=== PATIENT | male | born 1965 | race Caucasian/White ===

== ENCOUNTER 2021-03-02 17:15 | Emergency (ER) | payer BC ==
[2021-03-02] MEDS ORDERED: Sodium Chloride 0.9% 1,000 ML IV ONE ×2 (17:23→18:00)
--- NOTE | 2021-03-02 17:28 | EDM.PDOC ---
<AllibreannFiliberto landis Jason - Last Filed: 03/02/21 17:29> ED HPI GENERAL MEDICAL PROBLEM - General Stated Complaint: PASSED OUT, DISORIENTED, CHEST COLD Time Seen by Provider: 03/02/21 17:18 Source of Information: Reports: Patient History Limitations: Reports: No Limitations - History of Present Illness INITIAL COMMENTS - FREE TEXT/NARRATIVE: 56-year-old male past medical history CAD presents for episode of dizziness and syncope. Patient notes that he has been battling a "chest cold" for about 5 days. Notes nonproductive cough, shortness of breath, chest tightness. Denies fevers. Does note generalized weakness. Today was working with his sons when he began to feel very dizzy and lightheaded. He sat down and had an episode of syncope lasting a few seconds. He currently feels some dizziness but is feeling much better than when the event happened. - Related Data Allergies Allergy/AdvReac Type Severity Reaction Status Date / Time No Known Allergies Allergy Verified 03/02/21 17:55 Home Meds: Home Meds Ezetimibe [Zetia] 1 dose PO DAILY 03/02/21 [History] Lisinopril/Hydrochlorothiazide [Lisinopril-HCTZ 10-12.5 MG] 1 dose PO DAILY 03/02/21 [History] Metoprolol Succinate [Toprol XL] 1 dose PO DAILY 03/02/21 [History] Pantoprazole Sodium [Protonix] 1 dose PO DAILY 03/02/21 [History] Rosuvastatin Calcium [Crestor] 1 dose PO DAILY 03/02/21 [History] ED ROS GENERAL - Review of Systems Review Of Systems: Comprehensive ROS is negative, except as noted in HPI. ED EXAM, GENERAL - Physical Exam Exam: See Below Exam Limited By: No Limitations General Appearance: Alert, WD/WN, No Apparent Distress Eye Exam: Bilateral Eye: EOMI, PERRL Ears: Hearing Grossly Normal Throat/Mouth: Normal Voice, No Airway Compromise Head: Atraumatic, Normocephalic Neck: Normal Inspection Respiratory/Chest: No Respiratory Distress, Lungs Clear, Normal Breath Sounds, No Accessory Muscle Use Cardiovascular: Normal Peripheral Pulses, No Edema, Tachycardia GI/Abdominal: Soft, Non-Tender Extremities: Normal Inspection Neurological: Alert, Oriented, CN II-XII Intact, Normal Cognition, Normal Gait, No Motor/Sensory Deficits Psychiatric: Normal Affect, Normal Mood Skin Exam: Warm, Dry, Intact, Normal Color #1 Interpretation EKG Date: 03/02/21 Time: 17:20 Rhythm: NSR Rate (Beats/Min): 119 [place]: Normal P-Wave: Present QRS: Normal ST-T: Normal QT: Normal OH/PQ Interval: 116 Comparison: NA - No Prior EKG EKG Interpretation Comments: unremarkable EKG Course - Re-Assessments/Exams Free Text/Narrative Re-Assessment/Exam: 03/02/21 17:29 Patient presents status post syncopal episode preceded by lightheadedness and dizziness. His neurologic exam is unremarkable. Will get head CT and CTA imaging. Will get Covid test and basic labs. Departure - Departure Disposition: Home, Self-Care 01 Clinical Impression: Dehydration, COVID-19 virus infection Syncope Qualifiers: Syncope type: unspecified Qualified Code(s): R55 - Syncope and collapse - Discharge Information Referrals: PCP,None [Primary Care Provider] - Additional Instructions: The following information is given to patients seen in the emergency department who are being discharged to home. This information is to outline your options for follow-up care. We provide all patients seen in our emergency department with a follow-up referral. The need for follow-up, as well as the timing and circumstances, are variable depending upon the specifics of your emergency department visit. If you don't have a primary care physician on staff, we will provide you with a referral. We always advise you to contact your personal physician following an emergency department visit to inform them of the circumstance of the visit and for follow-up with them and/or the need for any referrals to a consulting specialist. The emergency department will also refer you to a specialist when appropriate. This referral assures that you have the opportunity for follow-up care with a specialist. All of these measure are taken in an effort to provide you with optimal care, which includes your follow-up. Under all circumstances we always encourage you to contact your private physician who remains a resource for coordinating your care. When calling for follow-up care, please make the office aware that this follow-up is from your recent emergency room visit. If for any reason you are refused follow-up, please contact the [facility] Emergency Department at and asked to speak to the emergency department charge nurse. [facility] Primary Care / Cardiology, Dr. Souza [address] [place] [address] [facility] [address] [place] [address] 1. You have been given an outpatient prescription for a Holter monitor. The Holter monitor results will be sent to the lube technician, Dr. Souza for follow-up of the Holter monitor and symptoms from today as discussed. 2. Encourage small but frequent sips of fluid to prevent dehydration. 3. Your COVID-19 screening is positive. That means you do have the coronavirus and are considered contagious. Your vital signs and oxygen saturation are well enough that you were able to monitor your symptoms at home. Continue to monitor for trouble breathing, new confusion or inability to arouse, bluish lips or face or any of the other symptoms we discussed -if this occurs please return to the emergency room.Continue to monitor your health at home for worsening symptoms so that you can be taken care of and treated quickly if needed. 4. Please self quarantine until 10 days have passed since your symptoms began AND you are fever free (<100.4 degrees fahrenheit) for 24 hours without the use of fever-reducing medications AND symptoms are improving. You should restrict activities outside of your home, except for getting medical care. Do not go to work, school, or public areas. Avoid using public transportation, ride-sharing, or taxis. Inform any persons that you have been in contact with since you started becoming symptomatic that you have tested positive; they should be made aware and take the appropriate steps as needed. 5. You may alternate Tylenol and ibuprofen as needed for pain and fever management. 6. The [facility] department will be calling you and following up with you. The [place] COVID 19 Hotline phone number , They are open Tuesday - Tuesday 7am - 7pm. Follow up with your primary care provider for re-evaluation and re-testing after quarantine and discuss when you should be seen. 7. For more specific guidelines regarding isolation/quarantine please visit this website. https://www.health.[place].gov/sites/www/files/documents/Files/ZACH/coronavirus/Fac tsheet_for_People_With_COVID-19.pdf <Alisha Guzman - Last Filed: 03/02/21 20:54> ED HPI GENERAL MEDICAL PROBLEM - History of Present Illness INITIAL COMMENTS - FREE TEXT/NARRATIVE: I have received sign out from provider at 19:00 pending COVID19 swab, repeat lactic acid following fluid bolus secondary to dehydration. I have personally seen and evaluated the patient and agree with the above H&P. Upon my reexamination of patient, his tachycardia has resolved and is now 70 bpm, and patient is otherwise vitally stable and states he feels much improved following the fluid bolus. Repeat lactate shows improvement from 2.7 and is now within normal limits at 1.4. Patient's COVID-19 is positive. Discussed with patient given the concern for initial tachycardia, and syncopal event, the concern for possible pulmonary embolism in the setting of COVID-19. However, patient has received a contrast bolus upon arrival to the ED for a head and neck CT angio and is unable to receive a repeat dose at this time, per radiology 24 hours between contrast bolus and concern of patient's mild elevation in creatinine puts at a higher risk. I thoroughly discussed this with patient and agreeable to D-dimer screening at this time. D-dimer is mildly elevated at 0.53. I did offer admission for observation due to syncope, elevation in D-dimer, and inability to further assess for pulmonary embolism at this time, however, patient declines as he does not feel his syncopal event was related to a pulmonary embolism. All risks versus benefits discussed with patient and expresses understanding. Patient is requesting to leave the emergency room. Discussed with patient getting a Holter monitor/Zio patch placement since he is requesting to leave the ED and does not want to stay and is agreeable to this. Patient does have a history of coronary artery disease with multiple stents which does put patient at a higher risk but is agreeable to holter monitor placement. Patient will get Holter monitor placed in the morning and follow-up with a lube technician for further evaluation. All signs and symptoms that were prompt return to the ED thoroughly discussed with patient. Add to diagnostics: Ddimer, Repeat Lactate, Outpatient Holter Monitor / ZioPatch Add to impression: Syncope Dehydration COVID-19 viral infection Course - Vital Signs Last Recorded V/S: Last Vital Signs Temp 99.6 F 03/02/21 19:16 Pulse 89 03/02/21 19:16 Resp 16 03/02/21 19:16 BP 110/65 03/02/21 19:16 Pulse Ox 97 03/02/21 19:16 - Orders/Labs/Meds Orders: Active Orders 24 hr Category Date Time Status Blood Glucose Check, Bedside [RC] ONETIME Care 03/02/21 17:24 Active Saline Lock Insert [OM.PC] Stat Oth 03/02/21 17:24 Ordered Labs: Laboratory Tests 03/02/21 03/02/21 03/02/21 Range/Units 17:13 17:23 17:23 WBC 7.76 (4.0-11.0) K/uL RBC 5.34 (4.50-5.90) M/uL Hgb 15.8 (13.0-17.0) g/dL Hct 46.0 (38.0-50.0) % MCV 86.1 (80.0-98.0) fL MCH 29.6 (27.0-32.0) pg MCHC 34.3 (31.0-37.0) g/dL RDW Std Deviation 41.8 (28.0-62.0) fl RDW Coeff of Elvin 13 (11.0-15.0) % Plt Count 223 (150-400) K/uL MPV 10.00 (7.40-12.00) fL Neut % (Auto) 83.4 H (48.0-80.0) % Lymph % (Auto) 8.5 L (16.0-40.0) % [place] % (Auto) 7.7 (0.0-15.0) % Eos % (Auto) 0.3 (0.0-7.0) % Baso % (Auto) 0.1 (0.0-1.5) % Neut # (Auto) 6.5 H (1.4-5.7) K/uL Lymph # (Auto) 0.7 (0.6-2.4) K/uL [place] # (Auto) 0.6 (0.0-0.8) K/uL Eos # (Auto) 0.0 (0.0-0.7) K/uL Baso # (Auto) 0.0 (0.0-0.1) K/uL Nucleated RBC % 0.0 /100WBC Nucleated RBCs # 0 K/uL INR APTT (18.6-31.3) SEC D-Dimer, Quantitative 0.53 H (0.0-0.50) mg/L FEU Sodium (136-148) mmol/L Potassium (3.5-5.1) mmol/L Chloride (98-107) mmol/L Carbon Dioxide (21.0-32.0) mmol/L BUN (7.0-18.0) mg/dL Creatinine (0.8-1.3) mg/dL Est Cr Clr Drug Dosing Estimated GFR (MDRD) ml/min Glucose (74-106) mg/dL Lactic Acid 2.7 H* (0.4-2.0) mmol/L Calcium (8.5-10.1) mg/dL Magnesium (1.8-2.4) mg/dL Total Bilirubin (0.2-1.0) mg/dL AST (15-37) IU/L ALT (14-63) IU/L Alkaline Phosphatase (46-116) U/L Creatine Kinase (26-308) U/L Troponin I (0.000-0.056) ng/mL Total Protein (6.4-8.2) g/dL Albumin (3.4-5.0) g/dL Globulin (2.6-4.0) g/dL Albumin/Globulin Ratio (0.9-1.6) SARS-CoV-2 RNA (ARGENIS) (NEGATIVE) 03/02/21 03/02/21 03/02/21 Range/Units 17:23 17:23 17:23 WBC (4.0-11.0) K/uL RBC (4.50-5.90) M/uL Hgb (13.0-17.0) g/dL Hct (38.0-50.0) % MCV (80.0-98.0) fL MCH (27.0-32.0) pg MCHC (31.0-37.0) g/dL RDW Std Deviation (28.0-62.0) fl RDW Coeff of Elvin (11.0-15.0) % Plt Count (150-400) K/uL MPV (7.40-12.00) fL Neut % (Auto) (48.0-80.0) % Lymph % (Auto) (16.0-40.0) % [place] % (Auto) (0.0-15.0) % Eos % (Auto) (0.0-7.0) % Baso % (Auto) (0.0-1.5) % Neut # (Auto) (1.4-5.7) K/uL Lymph # (Auto) (0.6-2.4) K/uL [place] # (Auto) (0.0-0.8) K/uL Eos # (Auto) (0.0-0.7) K/uL Baso # (Auto) (0.0-0.1) K/uL Nucleated RBC % /100WBC Nucleated RBCs # K/uL INR 1.05 APTT 25.0 (18.6-31.3) SEC D-Dimer, Quantitative (0.0-0.50) mg/L FEU Sodium 135 L (136-148) mmol/L Potassium 4.0 (3.5-5.1) mmol/L Chloride 99 (98-107) mmol/L Carbon Dioxide 26.8 (21.0-32.0) mmol/L BUN 16 (7.0-18.0) mg/dL Creatinine 1.8 H (0.8-1.3) mg/dL Est Cr Clr Drug Dosing TNP Estimated GFR (MDRD) 39.1 ml/min Glucose 203 H (74-106) mg/dL Lactic Acid (0.4-2.0) mmol/L Calcium 9.0 (8.5-10.1) mg/dL Magnesium 2.0 (1.8-2.4) mg/dL Total Bilirubin 0.6 (0.2-1.0) mg/dL AST 23 (15-37) IU/L ALT 29 (14-63) IU/L Alkaline Phosphatase 107 (46-116) U/L Creatine Kinase 78 (26-308) U/L Troponin I < 0.050 (0.000-0.056) ng/mL Total Protein 7.2 (6.4-8.2) g/dL Albumin 3.6 (3.4-5.0) g/dL Globulin 3.6 (2.6-4.0) g/dL Albumin/Globulin Ratio 1.0 (0.9-1.6) SARS-CoV-2 RNA (ARGENIS) (NEGATIVE) 03/02/21 03/02/21 Range/Units 17:30 20:00 WBC (4.0-11.0) K/uL RBC (4.50-5.90) M/uL Hgb (13.0-17.0) g/dL Hct (38.0-50.0) % MCV (80.0-98.0) fL MCH (27.0-32.0) pg MCHC (31.0-37.0) g/dL RDW Std Deviation (28.0-62.0) fl RDW Coeff of Elvin (11.0-15.0) % Plt Count (150-400) K/uL MPV (7.40-12.00) fL Neut % (Auto) (48.0-80.0) % Lymph % (Auto) (16.0-40.0) % [place] % (Auto) (0.0-15.0) % Eos % (Auto) (0.0-7.0) % Baso % (Auto) (0.0-1.5) % Neut # (Auto) (1.4-5.7) K/uL Lymph # (Auto) (0.6-2.4) K/uL [place] # (Auto) (0.0-0.8) K/uL Eos # (Auto) (0.0-0.7) K/uL Baso # (Auto) (0.0-0.1) K/uL Nucleated RBC % /100WBC Nucleated RBCs # K/uL INR APTT (18.6-31.3) SEC D-Dimer, Quantitative (0.0-0.50) mg/L FEU Sodium (136-148) mmol/L Potassium (3.5-5.1) mmol/L Chloride (98-107) mmol/L Carbon Dioxide (21.0-32.0) mmol/L BUN (7.0-18.0) mg/dL Creatinine (0.8-1.3) mg/dL Est Cr Clr Drug Dosing Estimated GFR (MDRD) ml/min Glucose (74-106) mg/dL Lactic Acid 1.4 (0.4-2.0) mmol/L Calcium (8.5-10.1) mg/dL Magnesium (1.8-2.4) mg/dL Total Bilirubin (0.2-1.0) mg/dL AST (15-37) IU/L ALT (14-63) IU/L Alkaline Phosphatase (46-116) U/L Creatine Kinase (26-308) U/L Troponin I (0.000-0.056) ng/mL Total Protein (6.4-8.2) g/dL Albumin (3.4-5.0) g/dL Globulin (2.6-4.0) g/dL Albumin/Globulin Ratio (0.9-1.6) SARS-CoV-2 RNA (ARGENIS) POSITIVE H (NEGATIVE) Meds: Medications Discontinued Medications Generic Name Dose Route Start Last Admin Trade Name Freq PRN Reason Stop Dose Admin Sodium Chloride 1,000 mls @ 999 mls/hr 03/02/21 17:23 03/02/21 18:15 Normal Saline IV 03/02/21 18:23 999 mls/hr .Bolus ONE Administration Sodium Chloride 1,000 mls @ 999 mls/hr 03/02/21 18:00 03/02/21 18:16 Normal Saline IV 03/02/21 19:00 999 mls/hr .Bolus ONE Administration Iopamidol 100 ml 03/02/21 17:48 03/02/21 17:48 Iopamidol 755 Mg/Ml 500 Ml Multipack Bottle IVPUSH 03/02/21 17:49 100 ml ONETIME STA Administration Departure - Departure Time of Disposition: 20:41 Sepsis Event Note (ED) - Focused Exam Vital Signs: Vital Signs Temp Pulse Resp BP Pulse Ox 03/02/21 19:16 99.6 F 89 16 110/65 97 03/02/21 18:30 106 H 111/68 96 03/02/21 18:15 110 H 119/69 96 03/02/21 18:00 113 H 112/67 94 L 03/02/21 17:45 112 H 105/66 94 L 03/02/21 17:30 116 H 99/73 96 03/02/21 17:25 97.3 F 88 20 98
[2021-03-02] MEDS ORDERED: Iopamidol 755 MG/ML 500 ML Multipack Bottle IVPUSH STA (17:48)
[2021-03-02 17:57] LABS: BLOOD UREA NITROGEN,BUN 16 mg/dL (7.0-18.0); CARBON DIOXIDE,CO2 26.8 mmol/L (21.0-32.0); CHLORIDE,CL 99 mmol/L (98-107); GLUCOSE RANDOM 203 mg/dL (74-106); SODIUM,NA 135 mmol/L (136-148)
--- NOTE | 2021-03-02 18:01 | CT ---
DATE: 03/02/2021. CLINICAL HISTORY: Patient with syncope and dizziness. TECHNIQUE: Standard helical CT image acquisition of the brain following by standard helical CT image acquisition through the head and neck after intravenous contrast bolus enhancement. Multiplanar reconstructed images performed on a separate workstation. COMPARISON: None available. FINDINGS: CT HEAD: There is no intracranial hemorrhage. No extra-axial collection, mass effect, or midline shift. Cerda-white matter differentiation is preserved. Ventricles are normal in size and morphology for patient age. The calvarium is unremarkable. The orbits are unremarkable. Mild mucosal thickening of the maxillary sinuses and mucosal thickening of the bilateral ethmoid air cells. The mastoid air cells are unremarkable. The soft tissues are unremarkable. CT ANGIOGRAM HEAD AND NECK: The origins of the great vessels from the aortic arch are patent. The origins of the right and left vertebral arteries are patent. The common carotid arteries are patent. No significant stenoses at the origins of the proximal internal carotid arteries by NASCET criteria. The more distal cervical segments of the internal carotid arteries are patent. The left vertebral artery is dominant. The cervical segments of the vertebral arteries are patent. No intracranial proximal large vessel occlusion or flow limiting luminal stenosis. The visualized lung apices are unremarkable. The thyroid gland is unremarkable. There are mild degenerative changes in the cervical spine. IMPRESSION: 1. No CT evidence of acute intracranial abnormality. 2. Very mild paranasal sinus disease, as above. 3. No intracranial proximal large vessel occlusion or flow limiting luminal stenosis. 4. Patent cervical arterial vasculature without hemodynamically significant luminal stenosis. Please note that all CT scans at this facility use dose modulation, iterative reconstruction, and/or weight-based dosing when appropriate to reduce radiation dose to as low as reasonably achievable. Dictated by Rodney Cox MD @ 03/02/2021 6:00:15 PM (Electronically Signed)
--- NOTE | 2021-03-02 18:15 | CR ---
INDICATION: Stroke TECHNIQUE: Single view chest. FINDINGS: The lungs are clear. The heart, mediastinum and pulmonary vessels are of normal size. There is no evidence of pleural disease. IMPRESSION: Negative chest. Dictated by Berta Terry MD @ 03/02/2021 6:13:54 PM (Electronically Signed)
== END 2021-03-02 20:59 | disposition home or self-care (01) ==
LOC: MW.ED 17:15
DX: U07.1 COVID-19 (principal); E86.0 Dehydration; R55 Syncope and collapse
CPT/HCPCS: 36415; 70450; 70496; 70498; 71045; 80053; 82550; 83605; 83735; 84484; 85025; 85379; 85610; 85730; 87635; 93005; 99285; J7030; Q9967; U0002